=== PATIENT | male | born 1995 | race Two or more races ===

== ENCOUNTER 2018-08-20 10:34 | Inpatient (IN) | payer OTHER ==
--- NOTE | 2018-08-20 10:42 | EDM.PDOC ---
ED HPI GENERAL MEDICAL PROBLEM - General Chief Complaint: Skin Complaint Stated Complaint: INFECTION Time Seen by Provider: 08/20/18 10:34 Source of Information: Reports: Patient History Limitations: Reports: No Limitations - History of Present Illness INITIAL COMMENTS - FREE TEXT/NARRATIVE: HISTORY AND PHYSICAL: History of present illness: Patient is a 23-year-old male presents to the ED today via police manager as patient is currently in [facility] with concern of a infection next to his rectum. Patient states he has noticed the infection started yesterday, and today felt like he had increased in size. Patient states he feels like he has subjective fevers at [facility] but has not been able to check her temperature. Patient states he had a difficult time sleeping last night and has had a hard time sitting due to the infection. Patient states he's had infection similar to this in the past just on. His other body parts. Patient states he's not been able to take anything for the symptoms. Patient denies any other symptoms or concerns. Patient denies chills, chest pain, shortness of breath, or cough. Denies headache, neck stiff ness, change in vision, syncope, or near syncope. Denies nausea, vomiting, abdominal pain, diarrhea, constipation, or dysuria. Has not noted any blood in urine or stool. Patient has been eating and drinking appropriately. Review of systems: As per history of present illness and below otherwise all systems reviewed and negative. Past medical history: As per history of present illness and as reviewed below otherwise noncontributory. Surgical history: As per history of present illness and as reviewed below otherwise noncontributory. Social history: See social history for further information Family history: As per history of present illness and as reviewed below otherwise noncontributory. Physical exam: General: Patient is alert, oriented, and in no acute distress. Patient sitting comfortably on exam table. HEENT: Atraumatic, normocephalic, pupils equal and reactive bilaterally, negative for conjunctival pallor or scleral icterus, mucous membranes moist, TMs normal bilaterally, throat clear, neck supple, nontender, trachea midline. No drooling or trismus noted. No meningeal signs. No hot potato voice noted. Lungs: Clear to auscultation, breath sounds equal bilaterally, chest nontender. Heart: S1S2, regular rate and rhythm without overt murmur Abdomen: Soft, nondistended, nontender. Negative for masses or hepatosplenomegaly. Negative for costovertebral tenderness. Pelvis: Stable nontender. Genitourinary: Deferred. Rectal: Tone intact. There is a follicular oquendo at the 3 o'clock position of the rectum with surrounding induration and erythema.Unable to determine depth / tracking extent of infection. Skin: Intact, warm, dry. No lesions or rashes noted. Extremities: Atraumatic, negative for cords or calf pain. Neurovascular unremarkable. Neuro: Awake, alert, oriented. Cranial nerves II through XII unremarkable. Cerebellum unremarkable. Motor and sensory unremarkable throughout. Exam nonfocal. Notes: Dr. Crystal verbally involved in patient care. Dr. Dickerson consulted on patient and will admit to observation. Voices understanding and is agreeable to plan of care. Denies any further questions or concerns at this time. Diagnostics: CBC, CMP, UA, blood cultures, lactate, pelvic CT Therapeutics: NS, Rocephin Impression: Gluteal fold cellulitis / folliculitis Leukocytosis Plan: 1. Admit to observation to Dr. Dickerson. Definitive disposition and diagnosis as appropriate pending reevaluation and review of above. right buttocks Pain Score (Numeric/FACES): 7 - Related Data Allergies Allergy/AdvReac Type Severity Reaction Status Date / Time vancomycin Allergy Hives Verified 08/20/18 13:39 Home Meds: Home Meds . [No Known Home Meds] 08/20/18 [History] ED ROS GENERAL - Review of Systems Review Of Systems: ROS reveals no pertinent complaints other than HPI. ED EXAM, SKIN/RASH Exam: See Below (See dictation) Course - Vital Signs Last Recorded V/S: Last Vital Signs Temp 35.6 C 08/20/18 10:42 Pulse 85 08/20/18 10:42 Resp 18 08/20/18 10:42 BP 173/81 H 08/20/18 10:42 Pulse Ox 94 L 08/20/18 10:42 - Orders/Labs/Meds Orders: Active Orders 24 hr Category Date Time Status Patient Status [ADT] Stat ADT 08/20/18 13:40 Ordered CULTURE BLOOD [BC] Stat Lab 08/20/18 11:01 Ordered Sodium Chloride 0.9% [Normal Saline] 1,000 ml Med 08/20/18 13:04 Ordered IV STAT Vancomycin [Vancocin] 1 gm Med 08/20/18 13:04 Ordered Sodium Chloride 0.9% [Normal Saline] 250 ml IV ONETIME Blood Culture x2 Reflex Set [OM.PC] Stat Oth 08/20/18 11:00 Ordered Medication Orders Sodium Chloride (Normal Saline) 1,000 mls @ 999 mls/hr IV STAT ONE Stop: 08/20/18 14:04 Last Admin: 08/20/18 13:22 Dose: 999 mls/hr Vancomycin HCl 1 gm/ Sodium (Chloride) 250 mls @ 250 mls/hr IV ONETIME ONE Stop: 08/20/18 14:03 Last Admin: 08/20/18 13:22 Dose: 250 mls/hr Labs: Laboratory Tests 08/20/18 08/20/18 08/20/18 Range/Units 11:08 11:08 11:08 WBC 17.98 H (4.0-11.0) K/uL RBC 5.79 (4.50-5.90) M/uL Hgb 16.7 (13.0-17.0) g/dL Hct 50.7 H (38.0-50.0) % MCV 87.6 (80.0-98.0) fL MCH 28.8 (27.0-32.0) pg MCHC 32.9 (31.0-37.0) g/dL RDW Std Deviation 41.6 (28.0-62.0) fl RDW Coeff of [place] 13 (11.0-15.0) % Plt Count 207 (150-400) K/uL MPV 10.80 (7.40-12.00) fL Neut % (Auto) 66.8 (48.0-80.0) % Lymph % (Auto) 18.4 (16.0-40.0) % [place] % (Auto) 14.2 (0.0-15.0) % Eos % (Auto) 0.4 (0.0-7.0) % Baso % (Auto) 0.2 (0.0-1.5) % Neut # (Auto) 12.0 H (1.4-5.7) K/uL Lymph # (Auto) 3.3 H (0.6-2.4) K/uL [place] # (Auto) 2.6 H (0.0-0.8) K/uL Eos # (Auto) 0.1 (0.0-0.7) K/uL Baso # (Auto) 0.0 (0.0-0.1) K/uL Nucleated RBC % 0.0 /100WBC Nucleated RBCs # 0 K/uL Lactate 1.8 (0.20-2.00) mmol/L Sodium 140 (136-148) mmol/L Potassium 3.5 (3.5-5.1) mmol/L Chloride 101 (98-107) mmol/L Carbon Dioxide 26.6 (21.0-32.0) mmol/L BUN 6 L (7.0-18.0) mg/dL Creatinine 1.0 (0.8-1.3) mg/dL Est Cr Clr Drug Dosing 113.91 mL/min Estimated GFR (MDRD) > 60.0 ml/min Glucose 110 H (74-106) mg/dL Calcium 9.1 (8.5-10.1) mg/dL Total Bilirubin 1.0 (0.2-1.0) mg/dL AST 11 L (15-37) IU/L ALT 25 (14-63) IU/L Alkaline Phosphatase 46 (46-116) U/L Total Protein 8.2 (6.4-8.2) g/dL Albumin 3.9 (3.4-5.0) g/dL Globulin 4.3 H (2.6-4.0) g/dL Albumin/Globulin Ratio 0.9 (0.9-1.6) Urine Color Urine Appearance Urine pH (5.0-8.0) Ur Specific [place] (1.001-1.035) Urine Protein (NEGATIVE) mg/dL Urine Glucose (UA) (NEGATIVE) mg/dL Urine Ketones (NEGATIVE) mg/dL Urine Occult Blood (NEGATIVE) Urine Nitrite (NEGATIVE) Urine Bilirubin (NEGATIVE) Urine Urobilinogen (<2.0) EU/dL Ur Leukocyte Esterase (NEGATIVE) 08/20/18 Range/Units 11:40 WBC (4.0-11.0) K/uL RBC (4.50-5.90) M/uL Hgb (13.0-17.0) g/dL Hct (38.0-50.0) % MCV (80.0-98.0) fL MCH (27.0-32.0) pg MCHC (31.0-37.0) g/dL RDW Std Deviation (28.0-62.0) fl RDW Coeff of [place] (11.0-15.0) % Plt Count (150-400) K/uL MPV (7.40-12.00) fL Neut % (Auto) (48.0-80.0) % Lymph % (Auto) (16.0-40.0) % [place] % (Auto) (0.0-15.0) % Eos % (Auto) (0.0-7.0) % Baso % (Auto) (0.0-1.5) % Neut # (Auto) (1.4-5.7) K/uL Lymph # (Auto) (0.6-2.4) K/uL [place] # (Auto) (0.0-0.8) K/uL Eos # (Auto) (0.0-0.7) K/uL Baso # (Auto) (0.0-0.1) K/uL Nucleated RBC % /100WBC Nucleated RBCs # K/uL Lactate (0.20-2.00) mmol/L Sodium (136-148) mmol/L Potassium (3.5-5.1) mmol/L Chloride (98-107) mmol/L Carbon Dioxide (21.0-32.0) mmol/L BUN (7.0-18.0) mg/dL Creatinine (0.8-1.3) mg/dL Est Cr Clr Drug Dosing mL/min Estimated GFR (MDRD) ml/min Glucose (74-106) mg/dL Calcium (8.5-10.1) mg/dL Total Bilirubin (0.2-1.0) mg/dL AST (15-37) IU/L ALT (14-63) IU/L Alkaline Phosphatase (46-116) U/L Total Protein (6.4-8.2) g/dL Albumin (3.4-5.0) g/dL Globulin (2.6-4.0) g/dL Albumin/Globulin Ratio (0.9-1.6) Urine Color YELLOW Urine Appearance CLEAR Urine pH 6.0 (5.0-8.0) Ur Specific [place] 1.020 (1.001-1.035) Urine Protein NEGATIVE (NEGATIVE) mg/dL Urine Glucose (UA) NEGATIVE (NEGATIVE) mg/dL Urine Ketones NEGATIVE (NEGATIVE) mg/dL Urine Occult Blood NEGATIVE (NEGATIVE) Urine Nitrite NEGATIVE (NEGATIVE) Urine Bilirubin NEGATIVE (NEGATIVE) Urine Urobilinogen 0.2 (<2.0) EU/dL Ur Leukocyte Esterase NEGATIVE (NEGATIVE) Meds: Medications Generic Name Dose Route Start Last Admin Trade Name Freq PRN Reason Stop Dose Admin Sodium Chloride 1,000 mls @ 999 mls/hr 08/20/18 13:04 08/20/18 13:22 Normal Saline IV 08/20/18 14:04 999 mls/hr STAT ONE Administration Vancomycin HCl 1 gm/ Sodium 250 mls @ 250 mls/hr 08/20/18 13:04 08/20/18 13: 22 Chloride IV 08/20/18 14:03 250 mls/hr ONETIME ONE Administration Discontinued Medications Generic Name Dose Route Start Last Admin Trade Name Freq PRN Reason Stop Dose Admin Ceftriaxone Sodium 1 gm 08/20/18 13:01 Rocephin IM 08/20/18 13:02 ONETIME ONE Diphenhydramine HCl 25 mg 08/20/18 13:25 08/20/18 13:31 Benadryl IVPUSH 08/20/18 13:26 25 mg ONETIME ONE Administration Sodium Chloride Confirm 08/20/18 13:13 08/20/18 13:15 Normal Saline Administered 08/20/18 13:14 Not Given Dose 250 mls @ as directed .ROUTE .STK-MED ONE Ceftriaxone Sodium/Dextrose 1 50 mls @ 100 mls/hr 08/20/18 13:25 08/20/18 13: 35 gm/ Premix IV 08/20/18 13:54 100 mls/hr ONETIME ONE Administration Iopamidol 100 ml 08/20/18 12:27 08/20/18 12:28 Isovue Multipack-370 (76%) IVPUSH 08/20/18 12:28 100 ml ONETIME STA Administration Vancomycin HCl Confirm 08/20/18 13:12 08/20/18 13:15 Vancomycin Administered 08/20/18 13:13 Not Given Dose 1 gm .ROUTE .STK-MED ONE Departure - Departure Time of Disposition: 13:05 Disposition: Refer to Observation Clinical Impression: Cellulitis of gluteal region - Discharge Information - My Orders Last 24 Hours: My Active Orders 08/20/18 11:00 Blood Culture x2 Reflex Set [OM.PC] Stat 08/20/18 11:01 CULTURE BLOOD [BC] Stat 08/20/18 13:04 Sodium Chloride 0.9% [Normal Saline] 1,000 ml IV STAT Vancomycin [Vancocin] 1 gm Sodium Chloride 0.9% [Normal Saline] 250 ml IV ONETIME 08/20/18 13:40 Patient Status [ADT] Stat - Assessment/Plan Last 24 Hours: My Active Orders 08/20/18 11:00 Blood Culture x2 Reflex Set [OM.PC] Stat 08/20/18 11:01 CULTURE BLOOD [BC] Stat 08/20/18 13:04 Sodium Chloride 0.9% [Normal Saline] 1,000 ml IV STAT Vancomycin [Vancocin] 1 gm Sodium Chloride 0.9% [Normal Saline] 250 ml IV ONETIME 08/20/18 13:40 Patient Status [ADT] Stat
[2018-08-20 11:50] LABS: CHLORIDE,CL 101 mmol/L (98-107); SODIUM,NA 140 mmol/L (136-148)
[2018-08-20] MEDS ORDERED: Iopamidol 755 MG/ML 500 ML Multipack Bottle IVPUSH STA (12:27)
--- NOTE | 2018-08-20 12:58 | CT ---
INDICATION : Right cellulitis and inflammation. Staph infection. TECHNIQUE : CT Scan of the pelvis soft tissue. IV contrast 100 cc nonionic. COMPARISON : No comparison IMPRESSION: 1. There is a right gluteal cellulitis however no obvious drainable fluid collection or abscess is seen. 2. The distal rectum appears unremarkable. The anal sphincter complex is not well assessed, if there is need for further evaluation consider pelvic rectal MRI protocol with gadolinium. FINDINGS: Soft tissues: A cellulitis with infiltration and edema in the medial right gluteal fold. No drainable fluid collection. Rectum and GI tract: No obvious rectal thickening. The colon has a moderate to large amount of retained stool. The appendix is normal. Urinary bladder and prostate: Unremarkable. Lymph nodes: No pathologic lymph node enlargement. Osseous structures: Unremarkable. Please note that all CT scans at this facility use dose modulation, iterative reconstruction, and/or weight-based dosing when appropriate to reduce radiation dose to as low as reasonably achievable. Dictated by Janes Sterling MD @ Aug 20 2018 12:53PM Signed by Dr. Janes Sterling @ Aug 20 2018 12:58PM
[2018-08-20] MEDS ORDERED: cefTRIAXone 1 GM Vial IM ONE (13:01)
[2018-08-20] MEDS ORDERED: Sodium Chloride 0.9% 1,000 ML IV ONE (13:04)
[2018-08-20] MEDS ORDERED: Vancomycin 1 GM SDV ONE (13:12)
[2018-08-20] MEDS ORDERED: Sodium Chloride 0.9% 250 ML ONE (13:13)
[2018-08-20] MEDS ORDERED: diphenhydrAMINE 50 MG/ML SDV IVPUSH ONE (13:25)
[2018-08-20] MEDS ORDERED: cefTRIAXone 1 GM in Premix Bag 1 BAG IV ONE (13:25)
[2018-08-20] MEDS ORDERED: Docusate Sodium 100 MG Cap PO PRN (14:09)
[2018-08-20] MEDS ORDERED: Ondansetron 4 MG Tab.DIS PO PRN (14:09)
--- NOTE | 2018-08-20 14:12 | PCM.HP ---
H&P History of Present Illness - General Date of Service: 08/20/18 Admit Problem/Dx: Admission Diagnosis/Problem Admission Diagnosis/Problem Cellulitis Source of Information: Patient History Limitations: Reports: No Limitations - History of Present Illness Initial Comments - Free Text/Narative: The patient is a 23-year-old gentleman who is in police custody had presented to the emergency department out of concern for pain and infection in his right buttocks. The patient reports that he had pain and swelling in this area which has gotten significantly worse over the past day. He has a history of pimple- like rash his buttocks as well. The patient says that he is been having a hard time sleeping and sitting due to the pain. The patient has had previous history of cellulitis. The patient has no other pain. He has no other specific aggravating or relieving factors. The pain is not radiating. Onset of Symptoms: Reports: Gradual Duration of Symptoms: Reports: Day(s): Location: Reports: Lower Extremity, Right Quality: Reports: Stabbing, Throbbing Severity: Moderate Improves with: Reports: Rest Worsens with: Reports: Movement Associated Symptoms: Reports: No Other Symptoms right buttocks Pain Score (Numeric/FACES): 7 - Related Data Allergies/Adverse Reactions: Allergies Allergy/AdvReac Type Severity Reaction Status Date / Time vancomycin Allergy Hives Verified 08/20/18 13:39 Home Medications: Home Meds . [No Known Home Meds] 08/20/18 [History] Past Medical History - Past Health History Medical/Surgical History: Denies Medical/Surgical History HEENT History: Reports: None Cardiovascular History: Reports: None Respiratory History: Reports: None Gastrointestinal History: Reports: None Genitourinary History: Reports: None Musculoskeletal History: Reports: None Neurological History: Reports: None Psychiatric History: Reports: None Endocrine/Metabolic History: Reports: None Hematologic History: Reports: None Immunologic History: Reports: None Oncologic (Cancer) History: Reports: None Dermatologic History: Reports: None - Infectious Disease History Infectious Disease History: Reports: MRSA Social & Family History - Family History Family Medical History: Noncontributory - Tobacco Use Smoking Status *Q: Never Smoker - Alcohol Use Alcohol Use History: No - Recreational Drug Use Recreational Drug Use: Yes Drug Use in Last 12 Months: Yes Recreational Drug Type: Reports: Marijuana/Hashish, Methamphetamine - Living Situation & Occupation Living situation: Reports: Other (Legal custody) H&P Review of Systems - Review of Systems: Review Of Systems: See Below General: Reports: No Symptoms HEENT: Reports: No Symptoms Pulmonary: Reports: No Symptoms Cardiovascular: Reports: No Symptoms Gastrointestinal: Reports: No Symptoms Genitourinary: Reports: No Symptoms Musculoskeletal: Reports: No Symptoms Skin: Reports: Rash, Other (Area of Cellulitis right gluteal cleft with folliculitis, area of erythema) Psychiatric: Reports: No Symptoms Neurological: Reports: No Symptoms Hematologic/Lymphatic: Reports: No Symptoms Immunologic: Reports: No Symptoms Exam - Exam Exam: See Below - Vital Signs Vital Signs: Last Vital Signs Temp 35.6 C 08/20/18 10:42 Pulse 79 08/20/18 14:05 Resp 16 08/20/18 14:05 BP 132/80 08/20/18 14:05 Pulse Ox 97 08/20/18 14:05 Weight: 113.398 kg - Exam Quality Assessment: No: Supplemental Oxygen General: Alert, Oriented, Cooperative, Mild Distress HEENT: Conjunctiva Clear, EACs Clear, EOMI, Mucosa Moist & [place], Nares Patent, PERRLA Neck: Supple, Trachea Midline Lungs: Clear to Auscultation, Normal Respiratory Effort Cardiovascular: Regular Rate, Regular Rhythm GI/Abdominal Exam: Normal Bowel Sounds, Soft, No Distention Back Exam: Normal Inspection, Full Range of Motion Extremities: Normal Inspection, No Pedal Edema Skin: Warm, Dry, Intact, Rash, Other (Area of cellulitis right gluteal cleft) Neurological: Cranial Nerves Intact Neuro Extensive - Mental Status: Alert, Oriented x3 Neuro Extensive - Motor, Sensory, Reflexes: CN II-XII Intact Psychiatric: Alert, Normal Affect, Normal Mood - Patient Data Lab Results Last 24 hrs: Laboratory Results - last 24 hr 08/20/18 08/20/18 08/20/18 Range/Units 11:08 11:08 11:08 WBC 17.98 H (4.0-11.0) K/uL RBC 5.79 (4.50-5.90) M/uL Hgb 16.7 (13.0-17.0) g/dL Hct 50.7 H (38.0-50.0) % MCV 87.6 (80.0-98.0) fL MCH 28.8 (27.0-32.0) pg MCHC 32.9 (31.0-37.0) g/dL RDW Std Deviation 41.6 (28.0-62.0) fl RDW Coeff of [place] 13 (11.0-15.0) % Plt Count 207 (150-400) K/uL MPV 10.80 (7.40-12.00) fL Neut % (Auto) 66.8 (48.0-80.0) % Lymph % (Auto) 18.4 (16.0-40.0) % [place] % (Auto) 14.2 (0.0-15.0) % Eos % (Auto) 0.4 (0.0-7.0) % Baso % (Auto) 0.2 (0.0-1.5) % Neut # (Auto) 12.0 H (1.4-5.7) K/uL Lymph # (Auto) 3.3 H (0.6-2.4) K/uL [place] # (Auto) 2.6 H (0.0-0.8) K/uL Eos # (Auto) 0.1 (0.0-0.7) K/uL Baso # (Auto) 0.0 (0.0-0.1) K/uL Nucleated RBC % 0.0 /100WBC Nucleated RBCs # 0 K/uL Lactate 1.8 (0.20-2.00) mmol/L Sodium 140 (136-148) mmol/L Potassium 3.5 (3.5-5.1) mmol/L Chloride 101 (98-107) mmol/L Carbon Dioxide 26.6 (21.0-32.0) mmol/L BUN 6 L (7.0-18.0) mg/dL Creatinine 1.0 (0.8-1.3) mg/dL Est Cr Clr Drug Dosing 113.91 mL/min Estimated GFR (MDRD) > 60.0 ml/min Glucose 110 H (74-106) mg/dL Calcium 9.1 (8.5-10.1) mg/dL Total Bilirubin 1.0 (0.2-1.0) mg/dL AST 11 L (15-37) IU/L ALT 25 (14-63) IU/L Alkaline Phosphatase 46 (46-116) U/L Total Protein 8.2 (6.4-8.2) g/dL Albumin 3.9 (3.4-5.0) g/dL Globulin 4.3 H (2.6-4.0) g/dL Albumin/Globulin Ratio 0.9 (0.9-1.6) Urine Color Urine Appearance Urine pH (5.0-8.0) Ur Specific [place] (1.001-1.035) Urine Protein (NEGATIVE) mg/dL Urine Glucose (UA) (NEGATIVE) mg/dL Urine Ketones (NEGATIVE) mg/dL Urine Occult Blood (NEGATIVE) Urine Nitrite (NEGATIVE) Urine Bilirubin (NEGATIVE) Urine Urobilinogen (<2.0) EU/dL Ur Leukocyte Esterase (NEGATIVE) 08/20/18 Range/Units 11:40 WBC (4.0-11.0) K/uL RBC (4.50-5.90) M/uL Hgb (13.0-17.0) g/dL Hct (38.0-50.0) % MCV (80.0-98.0) fL MCH (27.0-32.0) pg MCHC (31.0-37.0) g/dL RDW Std Deviation (28.0-62.0) fl RDW Coeff of [place] (11.0-15.0) % Plt Count (150-400) K/uL MPV (7.40-12.00) fL Neut % (Auto) (48.0-80.0) % Lymph % (Auto) (16.0-40.0) % [place] % (Auto) (0.0-15.0) % Eos % (Auto) (0.0-7.0) % Baso % (Auto) (0.0-1.5) % Neut # (Auto) (1.4-5.7) K/uL Lymph # (Auto) (0.6-2.4) K/uL [place] # (Auto) (0.0-0.8) K/uL Eos # (Auto) (0.0-0.7) K/uL Baso # (Auto) (0.0-0.1) K/uL Nucleated RBC % /100WBC Nucleated RBCs # K/uL Lactate (0.20-2.00) mmol/L Sodium (136-148) mmol/L Potassium (3.5-5.1) mmol/L Chloride (98-107) mmol/L Carbon Dioxide (21.0-32.0) mmol/L BUN (7.0-18.0) mg/dL Creatinine (0.8-1.3) mg/dL Est Cr Clr Drug Dosing mL/min Estimated GFR (MDRD) ml/min Glucose (74-106) mg/dL Calcium (8.5-10.1) mg/dL Total Bilirubin (0.2-1.0) mg/dL AST (15-37) IU/L ALT (14-63) IU/L Alkaline Phosphatase (46-116) U/L Total Protein (6.4-8.2) g/dL Albumin (3.4-5.0) g/dL Globulin (2.6-4.0) g/dL Albumin/Globulin Ratio (0.9-1.6) Urine Color YELLOW Urine Appearance CLEAR Urine pH 6.0 (5.0-8.0) Ur Specific [place] 1.020 (1.001-1.035) Urine Protein NEGATIVE (NEGATIVE) mg/dL Urine Glucose (UA) NEGATIVE (NEGATIVE) mg/dL Urine Ketones NEGATIVE (NEGATIVE) mg/dL Urine Occult Blood NEGATIVE (NEGATIVE) Urine Nitrite NEGATIVE (NEGATIVE) Urine Bilirubin NEGATIVE (NEGATIVE) Urine Urobilinogen 0.2 (<2.0) EU/dL Ur Leukocyte Esterase NEGATIVE (NEGATIVE) Result Diagrams: 08/20/18 11:08 08/20/18 11:08 - Problem List (1) Cellulitis of gluteal region SNOMED Code(s): 93382263 ICD Code: L03.317 - CELLULITIS OF BUTTOCK Status: Acute Priority: High Current Visit: Yes Problem List Initiated/Reviewed/Updated: Yes Orders Last 24hrs: Active Orders 24 hr Category Date Time Status Patient Status [ADT] Stat ADT 08/20/18 13:40 Active Oxygen Therapy [RC] PRN Care 08/20/18 14:08 Ordered Oxygen Therapy [RC] PRN Care 08/20/18 14:09 Ordered Up ad Ramila [RC] ASDIRECTED Care 08/20/18 14:08 Ordered VTE/DVT Education [RC] PER UNIT ROUTINE Care 08/20/18 14:08 Ordered VTE/DVT Education [RC] PER UNIT ROUTINE Care 08/20/18 14:09 Ordered Vital Signs [RC] Q4H Care 08/20/18 14:08 Ordered Vital Signs [RC] Q4H Care 08/20/18 14:09 Ordered Regular Diet [DIET] Diet 08/20/18 Dinner Ordered CBC WITH AUTO DIFF [HEME] AM Lab 08/21/18 05:11 Ordered COMPREHENSIVE METABOLIC PN,CMP [CHEM] AM Lab 08/21/18 05:11 Ordered CULTURE BLOOD [BC] Stat Lab 08/20/18 00:50 Received Acetaminophen [Tylenol] Med 08/20/18 14:09 Ordered 650 mg PO Q4H PRN Docusate Sodium [Colace] Med 08/20/18 14:09 Ordered 100 mg PO BID PRN Enoxaparin [Lovenox] Med 08/20/18 14:15 Ordered 30 mg SUBCUT Q24H Ondansetron [Zofran ODT] Med 08/20/18 14:09 Ordered 4 mg PO Q6H PRN Sodium Chloride 0.9% [Normal Saline] 1,000 ml Med 08/20/18 14:15 Ordered IV ASDIRECTED oxyCODONE Med 08/20/18 14:09 Ordered 5 mg PO Q4H PRN Blood Culture x2 Reflex Set [OM.PC] Stat Oth 08/20/18 11:00 Ordered Resuscitation Status Routine Resus Stat 08/20/18 14:08 Ordered Medication Orders Acetaminophen (Tylenol) 650 mg PO Q4H PRN PRN Reason: Pain (Mild 1-3)/fever Docusate Sodium (Colace) 100 mg PO BID PRN PRN Reason: Constipation Enoxaparin Sodium (Lovenox) 30 mg SUBCUT Q24H ISHAN Sodium Chloride (Normal Saline) 1,000 mls @ 100 mls/hr IV ASDIRECTED ISHAN Ondansetron HCl (Zofran Odt) 4 mg PO Q6H PRN PRN Reason: nausea, able to take PO Oxycodone HCl (Oxycodone) 5 mg PO Q4H PRN PRN Reason: Pain (moderate 4-6) Assessment/Plan Comment:: The patient is a 23-year-old gentleman who presented to the emergency department well in police custody with regards to cellulitis of his right gluteal area. The patient does have an area of folliculitis as well. While in the emergency department the patient apparently had a reaction to the vancomycin and the result this was discontinued.. The patient will be started on linezolid in order for tissue penetration and possible MRSA. The patient will also be afforded DVT prophylaxis with the use of Lovenox 30 mg subcutaneous daily. The patient will be kept on regular diet as tolerated. He's been encouraged to ambulate. Repeat laboratory testings a been ordered. The patient should be appropriate for discharge in 1-2 days.
[2018-08-20] MEDS: Enoxaparin 30 MG/0.3 ML Syringe SUBCUT SCH (15:41)
[2018-08-20] MEDS: Linezolid 600 MG in Premix Bag 1 BAG IV SCH (15:43)
[2018-08-20] MEDS: Sodium Chloride 0.9% 1,000 ML IV SCH (15:44)
[2018-08-20] MEDS: Acetaminophen 325 MG Tab PO PRN (17:39)
[2018-08-21] MEDS: Acetaminophen 325 MG Tab PO PRN ×4 (00:07→23:21)
[2018-08-21] MEDS: Linezolid 600 MG in Premix Bag 1 BAG IV SCH ×2 (02:27→15:06)
[2018-08-21] MEDS: Sodium Chloride 0.9% 1,000 ML IV SCH ×2 (04:23→16:14)
[2018-08-21 06:24] LABS: CHLORIDE,CL 101 mmol/L (98-107); SODIUM,NA 138 mmol/L (136-148)
[2018-08-21] MEDS: oxyCODONE 5 MG Tab PO PRN ×3 (07:34→23:13)
--- NOTE | 2018-08-21 08:16 | PCM.PN ---
<Juan Parsons - Last Filed: 08/21/18 08:11> - General Info Date of Service: 08/21/18 Subjective Update: no acute events overnight. borderline fever overnight of 100.3. States he feels better but still having some pain on his right gluteal fold. - Patient Data Vitals - Most Recent: Last Vital Signs Temp 100.3 C H 08/21/18 07:32 Pulse 93 08/21/18 07:11 Resp 18 08/21/18 07:11 BP 139/68 08/21/18 07:11 Pulse Ox 96 08/21/18 07:11 Weight - Most Recent: 113.398 kg I&O - Last 24 Hours: Intake & Output 08/20/18 08/21/18 08/21/18 22:59 06:59 14:59 Intake Total 1040 3007 Output Total 400 1250 Balance 640 1757 Lab Results Last 24 Hours: Laboratory Results - last 24 hr 08/20/18 08/20/18 08/20/18 Range/Units 11:08 11:08 11:08 WBC 17.98 H (4.0-11.0) K/uL RBC 5.79 (4.50-5.90) M/uL Hgb 16.7 (13.0-17.0) g/dL Hct 50.7 H (38.0-50.0) % MCV 87.6 (80.0-98.0) fL MCH 28.8 (27.0-32.0) pg MCHC 32.9 (31.0-37.0) g/dL RDW Std Deviation 41.6 (28.0-62.0) fl RDW Coeff of [place] 13 (11.0-15.0) % Plt Count 207 (150-400) K/uL MPV 10.80 (7.40-12.00) fL Neut % (Auto) 66.8 (48.0-80.0) % Lymph % (Auto) 18.4 (16.0-40.0) % [place] % (Auto) 14.2 (0.0-15.0) % Eos % (Auto) 0.4 (0.0-7.0) % Baso % (Auto) 0.2 (0.0-1.5) % Neut # (Auto) 12.0 H (1.4-5.7) K/uL Lymph # (Auto) 3.3 H (0.6-2.4) K/uL [place] # (Auto) 2.6 H (0.0-0.8) K/uL Eos # (Auto) 0.1 (0.0-0.7) K/uL Baso # (Auto) 0.0 (0.0-0.1) K/uL Add Manual Diff Neutrophils % (Manual) (48.0-80.0) % Band Neutrophils % % Lymphocytes % (Manual) (16.0-40.0) % Monocytes % (Manual) (0.0-15.0) % Eosinophils % (Manual) (0.0-7.0) % Metamyelocytes % % Nucleated RBC % 0.0 /100WBC Absolute Seg Neuts (1.4-5.7) Band Neutrophils # Lymphocytes # (Manual) (0.6-2.4) Monocytes # (Manual) (0.0-0.8) Eosinophils # (Manual) (0.0-0.7) Absolute Metamyelocyte Nucleated RBCs # 0 K/uL Lactate 1.8 (0.20-2.00) mmol/L Sodium 140 (136-148) mmol/L Potassium 3.5 (3.5-5.1) mmol/L Chloride 101 (98-107) mmol/L Carbon Dioxide 26.6 (21.0-32.0) mmol/L BUN 6 L (7.0-18.0) mg/dL Creatinine 1.0 (0.8-1.3) mg/dL Est Cr Clr Drug Dosing 113.91 mL/min Estimated GFR (MDRD) > 60.0 ml/min Glucose 110 H (74-106) mg/dL Calcium 9.1 (8.5-10.1) mg/dL Total Bilirubin 1.0 (0.2-1.0) mg/dL AST 11 L (15-37) IU/L ALT 25 (14-63) IU/L Alkaline Phosphatase 46 (46-116) U/L Total Protein 8.2 (6.4-8.2) g/dL Albumin 3.9 (3.4-5.0) g/dL Globulin 4.3 H (2.6-4.0) g/dL Albumin/Globulin Ratio 0.9 (0.9-1.6) Urine Color Urine Appearance Urine pH (5.0-8.0) Ur Specific [place] (1.001-1.035) Urine Protein (NEGATIVE) mg/dL Urine Glucose (UA) (NEGATIVE) mg/dL Urine Ketones (NEGATIVE) mg/dL Urine Occult Blood (NEGATIVE) Urine Nitrite (NEGATIVE) Urine Bilirubin (NEGATIVE) Urine Urobilinogen (<2.0) EU/dL Ur Leukocyte Esterase (NEGATIVE) 08/20/18 08/21/18 08/21/18 Range/Units 11:40 05:44 05:44 WBC 20.22 H (4.0-11.0) K/uL RBC 5.30 (4.50-5.90) M/uL Hgb 15.5 (13.0-17.0) g/dL Hct 46.9 (38.0-50.0) % MCV 88.5 (80.0-98.0) fL MCH 29.2 (27.0-32.0) pg MCHC 33.0 (31.0-37.0) g/dL RDW Std Deviation 42.4 (28.0-62.0) fl RDW Coeff of [place] 13 (11.0-15.0) % Plt Count 190 (150-400) K/uL MPV 10.40 (7.40-12.00) fL Neut % (Auto) (48.0-80.0) % Lymph % (Auto) (16.0-40.0) % [place] % (Auto) (0.0-15.0) % Eos % (Auto) (0.0-7.0) % Baso % (Auto) (0.0-1.5) % Neut # (Auto) (1.4-5.7) K/uL Lymph # (Auto) (0.6-2.4) K/uL [place] # (Auto) (0.0-0.8) K/uL Eos # (Auto) (0.0-0.7) K/uL Baso # (Auto) (0.0-0.1) K/uL Add Manual Diff YES Neutrophils % (Manual) 70 (48.0-80.0) % Band Neutrophils % 10 % Lymphocytes % (Manual) 15 L (16.0-40.0) % Monocytes % (Manual) 2 (0.0-15.0) % Eosinophils % (Manual) 1 (0.0-7.0) % Metamyelocytes % 2 % Nucleated RBC % 0.0 /100WBC Absolute Seg Neuts 14.2 H (1.4-5.7) Band Neutrophils # 2.0 Lymphocytes # (Manual) 3.0 H (0.6-2.4) Monocytes # (Manual) 0.4 (0.0-0.8) Eosinophils # (Manual) 0.2 (0.0-0.7) Absolute Metamyelocyte 0.4 Nucleated RBCs # 0 K/uL Lactate (0.20-2.00) mmol/L Sodium 138 (136-148) mmol/L Potassium 4.0 (3.5-5.1) mmol/L Chloride 101 (98-107) mmol/L Carbon Dioxide 28.7 (21.0-32.0) mmol/L BUN 6 L (7.0-18.0) mg/dL Creatinine 1.0 (0.8-1.3) mg/dL Est Cr Clr Drug Dosing 113.91 mL/min Estimated GFR (MDRD) > 60.0 ml/min Glucose 104 (74-106) mg/dL Calcium 8.6 (8.5-10.1) mg/dL Total Bilirubin 0.9 (0.2-1.0) mg/dL AST 14 L (15-37) IU/L ALT 27 (14-63) IU/L Alkaline Phosphatase 47 (46-116) U/L Total Protein 7.6 (6.4-8.2) g/dL Albumin 3.4 (3.4-5.0) g/dL Globulin 4.2 H (2.6-4.0) g/dL Albumin/Globulin Ratio 0.8 L (0.9-1.6) Urine Color YELLOW Urine Appearance CLEAR Urine pH 6.0 (5.0-8.0) Ur Specific [place] 1.020 (1.001-1.035) Urine Protein NEGATIVE (NEGATIVE) mg/dL Urine Glucose (UA) NEGATIVE (NEGATIVE) mg/dL Urine Ketones NEGATIVE (NEGATIVE) mg/dL Urine Occult Blood NEGATIVE (NEGATIVE) Urine Nitrite NEGATIVE (NEGATIVE) Urine Bilirubin NEGATIVE (NEGATIVE) Urine Urobilinogen 0.2 (<2.0) EU/dL Ur Leukocyte Esterase NEGATIVE (NEGATIVE) Med Orders - Current: Current Medications Acetaminophen (Tylenol) 650 mg PO Q4H PRN PRN Reason: Pain (Mild 1-3)/fever Last Admin: 08/21/18 07:32 Dose: 650 mg Docusate Sodium (Colace) 100 mg PO BID PRN PRN Reason: Constipation Enoxaparin Sodium (Lovenox) 30 mg SUBCUT Q24H [facility] Last Admin: 08/20/18 15:41 Dose: 30 mg Sodium Chloride (Normal Saline) 1,000 mls @ 100 mls/hr IV ASDIRECTED [facility] Last Admin: 08/21/18 04:23 Dose: 100 mls/hr Linezolid 600 mg/ Premix 300 mls @ 300 mls/hr IV Q12H [facility] Last Admin: 08/21/18 02:27 Dose: 300 mls/hr Ondansetron HCl (Zofran Odt) 4 mg PO Q6H PRN PRN Reason: nausea, able to take PO Oxycodone HCl (Oxycodone) 5 mg PO Q4H PRN PRN Reason: Pain (moderate 4-6) Last Admin: 08/21/18 07:34 Dose: 5 mg Discontinued Medications Ceftriaxone Sodium (Rocephin) 1 gm IM ONETIME ONE Stop: 08/20/18 13:02 Last Admin: 08/20/18 14:07 Dose: Not Given Diphenhydramine HCl (Benadryl) 25 mg IVPUSH ONETIME ONE Stop: 08/20/18 13:26 Last Admin: 08/20/18 13:31 Dose: 25 mg Sodium Chloride (Normal Saline) 1,000 mls @ 999 mls/hr IV STAT ONE Stop: 08/20/18 14:04 Last Admin: 08/20/18 13:22 Dose: 999 mls/hr Vancomycin HCl 1 gm/ Sodium (Chloride) 250 mls @ 250 mls/hr IV ONETIME ONE Stop: 08/20/18 14:03 Last Admin: 08/20/18 13:22 Dose: 250 mls/hr Sodium Chloride (Normal Saline) Confirm Administered Dose 250 mls @ as directed .ROUTE .STK-MED ONE Stop: 08/20/18 13:14 Last Admin: 08/20/18 13:15 Dose: Not Given Ceftriaxone Sodium/Dextrose 1 (gm/ Premix) 50 mls @ 100 mls/hr IV ONETIME ONE Stop: 08/20/18 13:54 Last Admin: 08/20/18 13:35 Dose: 100 mls/hr Iopamidol (Isovue Multipack-370 (76%)) 100 ml IVPUSH ONETIME STA Stop: 08/20/18 12:28 Last Admin: 08/20/18 12:28 Dose: 100 ml Vancomycin HCl (Vancomycin) Confirm Administered Dose 1 gm .ROUTE .STK-MED ONE Stop: 08/20/18 13:13 Last Admin: 08/20/18 13:15 Dose: Not Given - Exam General: Alert, Oriented, Cooperative, No Acute Distress Lungs: Clear to Auscultation, Normal Respiratory Effort Cardiovascular: Regular Rate, Regular Rhythm GI/Abdominal Exam: Normal Bowel Sounds, Soft, Non-Tender, No Distention (Male) Exam: Other (tender right area under right gluteal fold. No fluctuance. No drainage.) Skin: Warm - Problem List Review Problem List Initiated/Reviewed/Updated: Yes - Plan Plan:: A: 1. Right gluteal fold cellulitis 2. Leukocytosis P: 1. Right gluteal fold cellulitis- continue with Linezolid since he had reaction to vancomycin. Continue to monitor overnight. Dispo: likely DC tomorrow <Farhad Dickerson - Last Filed: 08/21/18 10:07> - General Info Admission Dx/Problem (Free Text): I have seen and examined to patient independently of medical scientist, Juan Mckeon MD. I have discussed the case for care of this patient with him. I have reviewed and approve of the plan of care as outlined by medical scientist. Please see orders. - Patient Data Vitals - Most Recent: Last Vital Signs Temp 100.3 C H 08/21/18 07:32 Pulse 93 08/21/18 07:11 Resp 18 08/21/18 07:11 BP 139/68 08/21/18 07:11 Pulse Ox 96 08/21/18 07:11 I&O - Last 24 Hours: Intake & Output 08/20/18 08/21/18 08/21/18 22:59 06:59 14:59 Intake Total 1040 3007 Output Total 400 1250 Balance 640 1757 Lab Results Last 24 Hours: Laboratory Results - last 24 hr 08/20/18 08/20/18 08/20/18 Range/Units 11:08 11:08 11:08 WBC 17.98 H (4.0-11.0) K/uL RBC 5.79 (4.50-5.90) M/uL Hgb 16.7 (13.0-17.0) g/dL Hct 50.7 H (38.0-50.0) % MCV 87.6 (80.0-98.0) fL MCH 28.8 (27.0-32.0) pg MCHC 32.9 (31.0-37.0) g/dL RDW Std Deviation 41.6 (28.0-62.0) fl RDW Coeff of [place] 13 (11.0-15.0) % Plt Count 207 (150-400) K/uL MPV 10.80 (7.40-12.00) fL Neut % (Auto) 66.8 (48.0-80.0) % Lymph % (Auto) 18.4 (16.0-40.0) % [place] % (Auto) 14.2 (0.0-15.0) % Eos % (Auto) 0.4 (0.0-7.0) % Baso % (Auto) 0.2 (0.0-1.5) % Neut # (Auto) 12.0 H (1.4-5.7) K/uL Lymph # (Auto) 3.3 H (0.6-2.4) K/uL [place] # (Auto) 2.6 H (0.0-0.8) K/uL Eos # (Auto) 0.1 (0.0-0.7) K/uL Baso # (Auto) 0.0 (0.0-0.1) K/uL Add Manual Diff Neutrophils % (Manual) (48.0-80.0) % Band Neutrophils % % Lymphocytes % (Manual) (16.0-40.0) % Monocytes % (Manual) (0.0-15.0) % Eosinophils % (Manual) (0.0-7.0) % Metamyelocytes % % Nucleated RBC % 0.0 /100WBC Absolute Seg Neuts (1.4-5.7) Band Neutrophils # Lymphocytes # (Manual) (0.6-2.4) Monocytes # (Manual) (0.0-0.8) Eosinophils # (Manual) (0.0-0.7) Absolute Metamyelocyte Nucleated RBCs # 0 K/uL Lactate 1.8 (0.20-2.00) mmol/L Sodium 140 (136-148) mmol/L Potassium 3.5 (3.5-5.1) mmol/L Chloride 101 (98-107) mmol/L Carbon Dioxide 26.6 (21.0-32.0) mmol/L BUN 6 L (7.0-18.0) mg/dL Creatinine 1.0 (0.8-1.3) mg/dL Est Cr Clr Drug Dosing 113.91 mL/min Estimated GFR (MDRD) > 60.0 ml/min Glucose 110 H (74-106) mg/dL Calcium 9.1 (8.5-10.1) mg/dL Total Bilirubin 1.0 (0.2-1.0) mg/dL AST 11 L (15-37) IU/L ALT 25 (14-63) IU/L Alkaline Phosphatase 46 (46-116) U/L Total Protein 8.2 (6.4-8.2) g/dL Albumin 3.9 (3.4-5.0) g/dL Globulin 4.3 H (2.6-4.0) g/dL Albumin/Globulin Ratio 0.9 (0.9-1.6) Urine Color Urine Appearance Urine pH (5.0-8.0) Ur Specific [place] (1.001-1.035) Urine Protein (NEGATIVE) mg/dL Urine Glucose (UA) (NEGATIVE) mg/dL Urine Ketones (NEGATIVE) mg/dL Urine Occult Blood (NEGATIVE) Urine Nitrite (NEGATIVE) Urine Bilirubin (NEGATIVE) Urine Urobilinogen (<2.0) EU/dL Ur Leukocyte Esterase (NEGATIVE) 08/20/18 08/21/18 08/21/18 Range/Units 11:40 05:44 05:44 WBC 20.22 H (4.0-11.0) K/uL RBC 5.30 (4.50-5.90) M/uL Hgb 15.5 (13.0-17.0) g/dL Hct 46.9 (38.0-50.0) % MCV 88.5 (80.0-98.0) fL MCH 29.2 (27.0-32.0) pg MCHC 33.0 (31.0-37.0) g/dL RDW Std Deviation 42.4 (28.0-62.0) fl RDW Coeff of [place] 13 (11.0-15.0) % Plt Count 190 (150-400) K/uL MPV 10.40 (7.40-12.00) fL Neut % (Auto) (48.0-80.0) % Lymph % (Auto) (16.0-40.0) % [place] % (Auto) (0.0-15.0) % Eos % (Auto) (0.0-7.0) % Baso % (Auto) (0.0-1.5) % Neut # (Auto) (1.4-5.7) K/uL Lymph # (Auto) (0.6-2.4) K/uL [place] # (Auto) (0.0-0.8) K/uL Eos # (Auto) (0.0-0.7) K/uL Baso # (Auto) (0.0-0.1) K/uL Add Manual Diff YES Neutrophils % (Manual) 70 (48.0-80.0) % Band Neutrophils % 10 % Lymphocytes % (Manual) 15 L (16.0-40.0) % Monocytes % (Manual) 2 (0.0-15.0) % Eosinophils % (Manual) 1 (0.0-7.0) % Metamyelocytes % 2 % Nucleated RBC % 0.0 /100WBC Absolute Seg Neuts 14.2 H (1.4-5.7) Band Neutrophils # 2.0 Lymphocytes # (Manual) 3.0 H (0.6-2.4) Monocytes # (Manual) 0.4 (0.0-0.8) Eosinophils # (Manual) 0.2 (0.0-0.7) Absolute Metamyelocyte 0.4 Nucleated RBCs # 0 K/uL Lactate (0.20-2.00) mmol/L Sodium 138 (136-148) mmol/L Potassium 4.0 (3.5-5.1) mmol/L Chloride 101 (98-107) mmol/L Carbon Dioxide 28.7 (21.0-32.0) mmol/L BUN 6 L (7.0-18.0) mg/dL Creatinine 1.0 (0.8-1.3) mg/dL Est Cr Clr Drug Dosing 113.91 mL/min Estimated GFR (MDRD) > 60.0 ml/min Glucose 104 (74-106) mg/dL Calcium 8.6 (8.5-10.1) mg/dL Total Bilirubin 0.9 (0.2-1.0) mg/dL AST 14 L (15-37) IU/L ALT 27 (14-63) IU/L Alkaline Phosphatase 47 (46-116) U/L Total Protein 7.6 (6.4-8.2) g/dL Albumin 3.4 (3.4-5.0) g/dL Globulin 4.2 H (2.6-4.0) g/dL Albumin/Globulin Ratio 0.8 L (0.9-1.6) Urine Color YELLOW Urine Appearance CLEAR Urine pH 6.0 (5.0-8.0) Ur Specific [place] 1.020 (1.001-1.035) Urine Protein NEGATIVE (NEGATIVE) mg/dL Urine Glucose (UA) NEGATIVE (NEGATIVE) mg/dL Urine Ketones NEGATIVE (NEGATIVE) mg/dL Urine Occult Blood NEGATIVE (NEGATIVE) Urine Nitrite NEGATIVE (NEGATIVE) Urine Bilirubin NEGATIVE (NEGATIVE) Urine Urobilinogen 0.2 (<2.0) EU/dL Ur Leukocyte Esterase NEGATIVE (NEGATIVE) Med Orders - Current: Current Medications Acetaminophen (Tylenol) 650 mg PO Q4H PRN PRN Reason: Pain (Mild 1-3)/fever Last Admin: 08/21/18 07:32 Dose: 650 mg Docusate Sodium (Colace) 100 mg PO BID PRN PRN Reason: Constipation Enoxaparin Sodium (Lovenox) 30 mg SUBCUT Q24H [facility] Last Admin: 08/20/18 15:41 Dose: 30 mg Sodium Chloride (Normal Saline) 1,000 mls @ 100 mls/hr IV ASDIRECTED [facility] Last Admin: 08/21/18 04:23 Dose: 100 mls/hr Linezolid 600 mg/ Premix 300 mls @ 300 mls/hr IV Q12H [facility] Last Admin: 08/21/18 02:27 Dose: 300 mls/hr Ondansetron HCl (Zofran Odt) 4 mg PO Q6H PRN PRN Reason: nausea, able to take PO Oxycodone HCl (Oxycodone) 5 mg PO Q4H PRN PRN Reason: Pain (moderate 4-6) Last Admin: 08/21/18 07:34 Dose: 5 mg Discontinued Medications Ceftriaxone Sodium (Rocephin) 1 gm IM ONETIME ONE Stop: 08/20/18 13:02 Last Admin: 08/20/18 14:07 Dose: Not Given Diphenhydramine HCl (Benadryl) 25 mg IVPUSH ONETIME ONE Stop: 08/20/18 13:26 Last Admin: 08/20/18 13:31 Dose: 25 mg Sodium Chloride (Normal Saline) 1,000 mls @ 999 mls/hr IV STAT ONE Stop: 08/20/18 14:04 Last Admin: 08/20/18 13:22 Dose: 999 mls/hr Vancomycin HCl 1 gm/ Sodium (Chloride) 250 mls @ 250 mls/hr IV ONETIME ONE Stop: 08/20/18 14:03 Last Admin: 08/20/18 13:22 Dose: 250 mls/hr Sodium Chloride (Normal Saline) Confirm Administered Dose 250 mls @ as directed .ROUTE .STK-MED ONE Stop: 08/20/18 13:14 Last Admin: 08/20/18 13:15 Dose: Not Given Ceftriaxone Sodium/Dextrose 1 (gm/ Premix) 50 mls @ 100 mls/hr IV ONETIME ONE Stop: 08/20/18 13:54 Last Admin: 08/20/18 13:35 Dose: 100 mls/hr Iopamidol (Isovue Multipack-370 (76%)) 100 ml IVPUSH ONETIME STA Stop: 08/20/18 12:28 Last Admin: 08/20/18 12:28 Dose: 100 ml Vancomycin HCl (Vancomycin) Confirm Administered Dose 1 gm .ROUTE .STK-MED ONE Stop: 08/20/18 13:13 Last Admin: 08/20/18 13:15 Dose: Not Given - Problem List & Annotations (1) Cellulitis of gluteal region SNOMED Code(s): 00518826 Code(s): L03.317 - CELLULITIS OF BUTTOCK Status: Acute Priority: High Current Visit: Yes - My Orders Last 24 Hours: My Active Orders 08/20/18 14:08 Up ad Ramila [RC] ASDIRECTED Vital Signs [RC] Q4H Resuscitation Status Routine 08/20/18 14:09 Oxygen Therapy [RC] PRN VTE/DVT Education [RC] PER UNIT ROUTINE Acetaminophen [Tylenol] 650 mg PO Q4H PRN Docusate Sodium [Colace] 100 mg PO BID PRN Ondansetron [Zofran ODT] 4 mg PO Q6H PRN oxyCODONE 5 mg PO Q4H PRN 08/20/18 14:15 Enoxaparin [Lovenox] 30 mg SUBCUT Q24H Sodium Chloride 0.9% [Normal Saline] 1,000 ml IV ASDIRECTED 08/20/18 15:15 Linezolid [Zyvox] 600 mg Premix Bag 1 bag IV Q12H 08/20/18 Dinner Regular Diet [DIET]
[2018-08-21] MEDS: Enoxaparin 30 MG/0.3 ML Syringe SUBCUT SCH (15:06)
[2018-08-22] MEDS: Linezolid 600 MG in Premix Bag 1 BAG IV SCH ×2 (02:19→15:54)
[2018-08-22] MEDS: Sodium Chloride 0.9% 1,000 ML IV SCH ×2 (03:37→13:24)
[2018-08-22 05:37] LABS: CHLORIDE,CL 103 mmol/L (98-107); SODIUM,NA 137 mmol/L (136-148)
[2018-08-22] MEDS: oxyCODONE 5 MG Tab PO PRN ×4 (05:58→21:06)
[2018-08-22] MEDS: Acetaminophen 325 MG Tab PO PRN (08:02)
--- NOTE | 2018-08-22 09:55 | PCM.PN ---
- General Info Date of Service: 08/22/18 Subjective Update: no acute events overnight. Afebrile. States that there's drainage from abscess. - Patient Data Vitals - Most Recent: Last Vital Signs Temp 37.4 C 08/22/18 08:02 Pulse 98 08/22/18 07:00 Resp 18 08/22/18 07:00 BP 112/53 L 08/22/18 07:00 Pulse Ox 98 08/22/18 07:00 Weight - Most Recent: 113.398 kg I&O - Last 24 Hours: Intake & Output 08/21/18 08/22/18 08/22/18 22:59 06:59 14:59 Intake Total 2159 3123 Output Total 1540 1030 Balance 619 2093 Lab Results Last 24 Hours: Laboratory Results - last 24 hr 08/22/18 08/22/18 Range/Units 04:45 04:45 WBC 15.93 H (4.0-11.0) K/uL RBC 4.81 (4.50-5.90) M/uL Hgb 13.5 (13.0-17.0) g/dL Hct 42.9 (38.0-50.0) % MCV 89.2 (80.0-98.0) fL MCH 28.1 (27.0-32.0) pg MCHC 31.5 (31.0-37.0) g/dL RDW Std Deviation 42.4 (28.0-62.0) fl RDW Coeff of [place] 13 (11.0-15.0) % Plt Count 180 (150-400) K/uL MPV 10.60 (7.40-12.00) fL Nucleated RBC % 0.0 /100WBC Nucleated RBCs # 0 K/uL Sodium 137 (136-148) mmol/L Potassium 3.9 (3.5-5.1) mmol/L Chloride 103 (98-107) mmol/L Carbon Dioxide 28.6 (21.0-32.0) mmol/L BUN 7 (7.0-18.0) mg/dL Creatinine 0.9 (0.8-1.3) mg/dL Est Cr Clr Drug Dosing 126.56 mL/min Estimated GFR (MDRD) > 60.0 ml/min Glucose 109 H (74-106) mg/dL Calcium 8.5 (8.5-10.1) mg/dL Tyrell Results Last 24 Hours: Microbiology 08/20/18 00:50 Aerobic Blood Culture - Preliminary Blood - Venous - Lab Draw NO GROWTH AFTER 1 DAY Anaerobic Blood Culture - Preliminary NO GROWTH AFTER 1 DAY Med Orders - Current: Current Medications Acetaminophen (Tylenol) 650 mg PO Q4H PRN PRN Reason: Pain (Mild 1-3)/fever Last Admin: 08/22/18 08:02 Dose: 650 mg Docusate Sodium (Colace) 100 mg PO BID PRN PRN Reason: Constipation Enoxaparin Sodium (Lovenox) 30 mg SUBCUT Q24H [facility] Last Admin: 08/21/18 15:06 Dose: 30 mg Sodium Chloride (Normal Saline) 1,000 mls @ 100 mls/hr IV ASDIRECTED [facility] Last Admin: 08/22/18 03:37 Dose: 100 mls/hr Linezolid 600 mg/ Premix 300 mls @ 300 mls/hr IV Q12H [facility] Last Admin: 08/22/18 02:19 Dose: 300 mls/hr Ondansetron HCl (Zofran Odt) 4 mg PO Q6H PRN PRN Reason: nausea, able to take PO Oxycodone HCl (Oxycodone) 5 mg PO Q4H PRN PRN Reason: Pain (moderate 4-6) Last Admin: 08/22/18 05:58 Dose: 5 mg Discontinued Medications Ceftriaxone Sodium (Rocephin) 1 gm IM ONETIME ONE Stop: 08/20/18 13:02 Last Admin: 08/20/18 14:07 Dose: Not Given Diphenhydramine HCl (Benadryl) 25 mg IVPUSH ONETIME ONE Stop: 08/20/18 13:26 Last Admin: 08/20/18 13:31 Dose: 25 mg Sodium Chloride (Normal Saline) 1,000 mls @ 999 mls/hr IV STAT ONE Stop: 08/20/18 14:04 Last Admin: 08/20/18 13:22 Dose: 999 mls/hr Vancomycin HCl 1 gm/ Sodium (Chloride) 250 mls @ 250 mls/hr IV ONETIME ONE Stop: 08/20/18 14:03 Last Admin: 08/20/18 13:22 Dose: 250 mls/hr Sodium Chloride (Normal Saline) Confirm Administered Dose 250 mls @ as directed .ROUTE .STK-MED ONE Stop: 08/20/18 13:14 Last Admin: 08/20/18 13:15 Dose: Not Given Ceftriaxone Sodium/Dextrose 1 (gm/ Premix) 50 mls @ 100 mls/hr IV ONETIME ONE Stop: 08/20/18 13:54 Last Admin: 08/20/18 13:35 Dose: 100 mls/hr Iopamidol (Isovue Multipack-370 (76%)) 100 ml IVPUSH ONETIME STA Stop: 08/20/18 12:28 Last Admin: 08/20/18 12:28 Dose: 100 ml Vancomycin HCl (Vancomycin) Confirm Administered Dose 1 gm .ROUTE .STK-MED ONE Stop: 08/20/18 13:13 Last Admin: 08/20/18 13:15 Dose: Not Given - Exam General: Alert, Oriented, Cooperative, No Acute Distress Lungs: Clear to Auscultation, Normal Respiratory Effort. No: Crackles, Wheezing Cardiovascular: Regular Rate, Regular Rhythm (Male) Exam: Other (erythematous, tender right gluteal abscess with active drainage.) - Problem List Review Problem List Initiated/Reviewed/Updated: Yes - My Orders Last 24 Hours: My Active Orders 08/22/18 09:27 Notify Provider Consults [RC] ASDIRECTED Consult to Physician [CONS] Routine - Plan Plan:: A: 1. Right gluteal fold abscess 2. Leukocytosis, improving P: 1. Right gluteal fold abscess- active drainage today. will consult general surgery for possible I&D. Continue linezolid for now. Dispo: likely DC tomorrow
[2018-08-22] MEDS: Enoxaparin 30 MG/0.3 ML Syringe SUBCUT SCH (13:20)
--- NOTE | 2018-08-22 14:07 | PCM.CONS ---
H&P History of Present Illness - General Date of Service: 08/22/18 Admit Problem/Dx: I have seen and examined to patient independently of durable medical equipment technician, Juan Mckeon MD. I have discussed the case for care of this patient with him. I have reviewed and approve of the plan of care as outlined by durable medical equipment technician. Please see orders. Source of Information: Patient History Limitations: Reports: No Limitations - History of Present Illness Initial Comments - Free Text/Narative: 23-year-old gentleman admitted earlier this week with spontaneous drainage and discomfort on the right perineum. He is currently incarcerated, secondary to being arrested for drug use. He has been in [facility] for the last 3 months and therefore has not had any alcohol, tobacco or illicit drugs. No prior history of abscesses. Denies fever or chills. Once the abscess spontaneously drained he has been feeling much better. Symptom Onset Date: 08/19/18 Duration of Symptoms: Reports: Improving Location: Reports: Other (Right buttock) Quality: Reports: Pressure, Throbbing Improves with: Reports: Rest Worsens with: Reports: Movement Associated Symptoms: Reports: Other (fever but no chills) right buttocks Pain Score (Numeric/FACES): 6 - Related Data Allergies/Adverse Reactions: Allergies Allergy/AdvReac Type Severity Reaction Status Date / Time vancomycin Allergy Hives Verified 08/21/18 14:57 Home Medications: Home Meds . [No Known Home Meds] 08/20/18 [History] Past Medical History - Past Health History Medical/Surgical History: Denies Medical/Surgical History HEENT History: Reports: None Cardiovascular History: Reports: None Respiratory History: Reports: None Gastrointestinal History: Reports: None Genitourinary History: Reports: None Musculoskeletal History: Reports: None Neurological History: Reports: None Psychiatric History: Reports: None Endocrine/Metabolic History: Reports: None Hematologic History: Reports: None Immunologic History: Reports: None Oncologic (Cancer) History: Reports: None Dermatologic History: Reports: None - Infectious Disease History Infectious Disease History: Reports: MRSA Social & Family History - Family History Family Medical History: Noncontributory - Tobacco Use Smoking Status *Q: Never Smoker Second Hand Smoke Exposure: No - Caffeine Use Caffeine Use: Reports: Coffee - Alcohol Use Days Per Week of Alcohol Use: 3 Number of Drinks Per Day: 2 Total Drinks Per Week: 6 Date of Last Drink: 04/28/18 - Recreational Drug Use Recreational Drug Use: Yes Drug Use in Last 12 Months: Yes Recreational Drug Type: Reports: Marijuana/Hashish, Methamphetamine Recreational Drug Use Frequency: Not Used In Over 4 Months - Living Situation & Occupation Living situation: Reports: Other (Legal custody) H&P Review of Systems - Review of Systems: Review Of Systems: See Below General: Reports: Fever. Denies: Chills, Malaise, Weakness, Fatigue, Night Sweats, Diaphoresis HEENT: Reports: No Symptoms Pulmonary: Denies: Shortness of Breath Cardiovascular: Denies: Chest Pain Gastrointestinal: Reports: Decreased Appetite, Flatus. Denies: Abdominal Pain, Anorexia, Bloody Stool, Constipation, Diarrhea, Distension, Hematemesis, Hematochezia, Melena, Nausea, Vomiting Genitourinary: Denies: Dysuria, Frequency, Burning Musculoskeletal: Reports: No Symptoms Skin: Reports: No Symptoms Psychiatric: Reports: No Symptoms Neurological: Reports: No Symptoms Hematologic/Lymphatic: Reports: No Symptoms Immunologic: Reports: No Symptoms Exam - Exam Exam: See Below - Vital Signs Vital Signs: Last Vital Signs Temp 99.3 F 08/22/18 08:02 Pulse 98 08/22/18 07:00 Resp 18 08/22/18 07:00 BP 112/53 L 08/22/18 07:00 Pulse Ox 98 08/22/18 07:00 Weight: 250 lb - Exam General: Alert, Oriented, Cooperative, Mild Distress HEENT: Conjunctiva Clear, EACs Clear, Pupils Equal, Pupils Reactive. No: Scleral Icterus Neck: Supple, Trachea Midline Lungs: Clear to Auscultation, Normal Respiratory Effort Cardiovascular: Regular Rate, Regular Rhythm GI/Abdominal Exam: Normal Bowel Sounds, Soft, Non-Tender (Male) Exam: No Hernia, Deferred Rectal (Males) Exam: Tenderness, Other (perineal induration with cellulitis) Back Exam: Normal Inspection Extremities: Normal Inspection, Normal Range of Motion Peripheral Pulses: 4+: Posterior Tibial (L), Posterior Tibial (R), Dorsalis Pedis (L), Dorsalis Pedis (R) Skin: Warm, Dry, Intact Neurological: Cranial Nerves Intact, Reflexes Equal Bilateral Psychiatric: Alert, Normal Affect, Normal Mood - Patient Data Lab Results Last 24 hrs: Laboratory Results - last 24 hr 08/22/18 08/22/18 Range/Units 04:45 04:45 WBC 15.93 H (4.0-11.0) K/uL RBC 4.81 (4.50-5.90) M/uL Hgb 13.5 (13.0-17.0) g/dL Hct 42.9 (38.0-50.0) % MCV 89.2 (80.0-98.0) fL MCH 28.1 (27.0-32.0) pg MCHC 31.5 (31.0-37.0) g/dL RDW Std Deviation 42.4 (28.0-62.0) fl RDW Coeff of Warren 13 (11.0-15.0) % Plt Count 180 (150-400) K/uL MPV 10.60 (7.40-12.00) fL Nucleated RBC % 0.0 /100WBC Nucleated RBCs # 0 K/uL Sodium 137 (136-148) mmol/L Potassium 3.9 (3.5-5.1) mmol/L Chloride 103 (98-107) mmol/L Carbon Dioxide 28.6 (21.0-32.0) mmol/L BUN 7 (7.0-18.0) mg/dL Creatinine 0.9 (0.8-1.3) mg/dL Est Cr Clr Drug Dosing 126.56 mL/min Estimated GFR (MDRD) > 60.0 ml/min Glucose 109 H (74-106) mg/dL Calcium 8.5 (8.5-10.1) mg/dL Result Diagrams: 08/22/18 04:45 08/22/18 04:45 Tyrell Results Last 24 hrs: Microbiology 08/20/18 00:50 Aerobic Blood Culture - Preliminary Blood - Venous - Lab Draw NO GROWTH AFTER 2 DAYS Anaerobic Blood Culture - Preliminary NO GROWTH AFTER 2 DAYS Consult PN Assessment/Plan (1) Perianal cellulitis SNOMED Code(s): 839133730 Code(s): K61.0 - ANAL ABSCESS Priority: Medium Current Visit: Yes (2) Infection of perianal area SNOMED Code(s): 772825682, 354137463 Code(s): K62.89 - OTHER SPECIFIED DISEASES OF ANUS AND RECTUM Priority: Medium Current Visit: Yes (3) Cellulitis of gluteal region SNOMED Code(s): 70001908 Code(s): L03.317 - CELLULITIS OF BUTTOCK Priority: High Current Visit: Yes Problem List Initiated/Reviewed/Updated: Yes My Orders Last 24 Hours: My Active Orders 08/22/18 13:17 Sitz Bath [OM.PC] Routine 08/22/18 Dinner Nothing Per Oral Diet [DIET] Plan: Sitz bath BID and PRN. NPO after midnight. Re-evaluate in the morning with the possibility of incision and drainage.
[2018-08-23] MEDS: Sodium Chloride 0.9% 1,000 ML IV SCH ×2 (02:02→12:29)
[2018-08-23] MEDS: Linezolid 600 MG in Premix Bag 1 BAG IV SCH ×2 (03:46→15:32)
[2018-08-23] MEDS: oxyCODONE 5 MG Tab PO PRN ×4 (04:28→22:13)
[2018-08-23 05:57] LABS: CHLORIDE,CL 105 mmol/L (98-107); SODIUM,NA 139 mmol/L (136-148)
--- NOTE | 2018-08-23 09:21 | PCM.PN ---
- General Info Date of Service: 08/23/18 Subjective Update: No acute events overnight. Afebrile. Less drainage from perineal abscess. - Patient Data Vitals - Most Recent: Last Vital Signs Temp 36.6 C 08/23/18 08:00 Pulse 63 08/23/18 08:00 Resp 17 08/23/18 08:00 BP 107/55 L 08/23/18 08:00 Pulse Ox 96 08/23/18 08:00 Weight - Most Recent: 113.398 kg I&O - Last 24 Hours: Intake & Output 08/22/18 08/23/18 08/23/18 22:59 06:59 14:59 Intake Total 2836 2750 Output Total 620 1920 Balance 2216 830 Lab Results Last 24 Hours: Laboratory Results - last 24 hr 08/23/18 08/23/18 Range/Units 05:25 05:25 WBC 10.36 (4.0-11.0) K/uL RBC 4.82 (4.50-5.90) M/uL Hgb 13.8 (13.0-17.0) g/dL Hct 43.2 (38.0-50.0) % MCV 89.6 (80.0-98.0) fL MCH 28.6 (27.0-32.0) pg MCHC 31.9 (31.0-37.0) g/dL RDW Std Deviation 42.3 (28.0-62.0) fl RDW Coeff of Warren 13 (11.0-15.0) % Plt Count 197 (150-400) K/uL MPV 10.70 (7.40-12.00) fL Nucleated RBC % 0.0 /100WBC Nucleated RBCs # 0 K/uL Sodium 139 (136-148) mmol/L Potassium 4.1 (3.5-5.1) mmol/L Chloride 105 (98-107) mmol/L Carbon Dioxide 26.5 (21.0-32.0) mmol/L BUN 7 (7.0-18.0) mg/dL Creatinine 0.8 (0.8-1.3) mg/dL Est Cr Clr Drug Dosing 142.38 mL/min Estimated GFR (MDRD) > 60.0 ml/min Glucose 106 (74-106) mg/dL Calcium 8.3 L (8.5-10.1) mg/dL Tyrell Results Last 24 Hours: Microbiology 08/20/18 00:50 Aerobic Blood Culture - Preliminary Blood - Venous - Lab Draw NO GROWTH AFTER 2 DAYS Anaerobic Blood Culture - Preliminary NO GROWTH AFTER 2 DAYS Med Orders - Current: Current Medications Acetaminophen (Tylenol) 650 mg PO Q4H PRN PRN Reason: Pain (Mild 1-3)/fever Last Admin: 08/22/18 08:02 Dose: 650 mg Docusate Sodium (Colace) 100 mg PO BID PRN PRN Reason: Constipation Enoxaparin Sodium (Lovenox) 30 mg SUBCUT Q24H [facility] Last Admin: 08/22/18 13:20 Dose: 30 mg Sodium Chloride (Normal Saline) 1,000 mls @ 100 mls/hr IV ASDIRECTED [facility] Last Admin: 08/23/18 02:02 Dose: 100 mls/hr Linezolid 600 mg/ Premix 300 mls @ 300 mls/hr IV Q12H [facility] Last Admin: 08/23/18 03:46 Dose: 300 mls/hr Ondansetron HCl (Zofran Odt) 4 mg PO Q6H PRN PRN Reason: nausea, able to take PO Oxycodone HCl (Oxycodone) 5 mg PO Q4H PRN PRN Reason: Pain (moderate 4-6) Last Admin: 08/23/18 08:39 Dose: 5 mg Discontinued Medications Ceftriaxone Sodium (Rocephin) 1 gm IM ONETIME ONE Stop: 08/20/18 13:02 Last Admin: 08/20/18 14:07 Dose: Not Given Diphenhydramine HCl (Benadryl) 25 mg IVPUSH ONETIME ONE Stop: 08/20/18 13:26 Last Admin: 08/20/18 13:31 Dose: 25 mg Sodium Chloride (Normal Saline) 1,000 mls @ 999 mls/hr IV STAT ONE Stop: 08/20/18 14:04 Last Admin: 08/20/18 13:22 Dose: 999 mls/hr Vancomycin HCl 1 gm/ Sodium (Chloride) 250 mls @ 250 mls/hr IV ONETIME ONE Stop: 08/20/18 14:03 Last Admin: 08/20/18 13:22 Dose: 250 mls/hr Sodium Chloride (Normal Saline) Confirm Administered Dose 250 mls @ as directed .ROUTE .STK-MED ONE Stop: 08/20/18 13:14 Last Admin: 08/20/18 13:15 Dose: Not Given Ceftriaxone Sodium/Dextrose 1 (gm/ Premix) 50 mls @ 100 mls/hr IV ONETIME ONE Stop: 08/20/18 13:54 Last Admin: 08/20/18 13:35 Dose: 100 mls/hr Iopamidol (Isovue Multipack-370 (76%)) 100 ml IVPUSH ONETIME STA Stop: 08/20/18 12:28 Last Admin: 08/20/18 12:28 Dose: 100 ml Vancomycin HCl (Vancomycin) Confirm Administered Dose 1 gm .ROUTE .STK-MED ONE Stop: 08/20/18 13:13 Last Admin: 08/20/18 13:15 Dose: Not Given - Exam General: Alert, Oriented, Cooperative Lungs: Clear to Auscultation, Normal Respiratory Effort. No: Crackles, Wheezing Cardiovascular: Regular Rate, Regular Rhythm GI/Abdominal Exam: Normal Bowel Sounds, Soft, Non-Tender (Male) Exam: Other (Tender perineal abscess, less drainage) Extremities: No Pedal Edema Skin: Warm, Dry - Problem List Review Problem List Initiated/Reviewed/Updated: Yes - My Orders Last 24 Hours: My Active Orders 08/22/18 09:27 Notify Provider Consults [RC] ASDIRECTED Consult to Physician [CONS] Routine 08/23/18 Lunch Regular Diet [DIET] - Plan Plan:: A: 1. Perineal abscess 2. Leukocytosis, resolved P: 1. Perineal abscess-improving. Will continue with IV antibiotics today. Appreciate general surgery recs. Dispo: likely DC tomorrow
[2018-08-23] MEDS: Acetaminophen 325 MG Tab PO PRN (12:29)
[2018-08-23] MEDS: Enoxaparin 30 MG/0.3 ML Syringe SUBCUT SCH (14:20)
--- NOTE | 2018-08-23 14:37 | PCM.SN ---
- Free Text/Narrative Note: Patient seen on rounds this morning. Seemed to be doing much better. No drainage. No fever/chills. WBC responding to antibiotics. Would continue sitz baths. Okay to feed him. Would keep him on IV antibiotics today, then discharge on po antibiotics to complete 10 days. Should continue sitz baths at half-way. I can see him back in the office if he continues to have trouble.
[2018-08-24] MEDS: Sodium Chloride 0.9% 1,000 ML IV SCH (00:21)
[2018-08-24] MEDS: Linezolid 600 MG in Premix Bag 1 BAG IV SCH (03:08)
[2018-08-24] MEDS: oxyCODONE 5 MG Tab PO PRN ×2 (04:14→08:22)
--- NOTE | 2018-08-24 13:32 | PCM.CONSN ---
- General Info Date of Service: 08/24/18 Admission Dx/Problem (Free Text): Perineal abscess. Subjective Update: Patient seen on rounds this morning. Is feeling much better. Denies fever/ chills. No further drainage. Functional Status: Reports: Pain Controlled, Tolerating Diet, Ambulating, Urinating - Review of Systems General: Denies: Fever, Chills HEENT: Reports: No Symptoms Pulmonary: Denies: Shortness of Breath Cardiovascular: Denies: Chest Pain Gastrointestinal: Denies: Abdominal Pain, Constipation, Decreased Appetite, Diarrhea, Difficulty Swallowing, Nausea, Vomiting Genitourinary: Reports: No Symptoms Musculoskeletal: Reports: No Symptoms Skin: Reports: No Symptoms Neurological: Reports: No Symptoms Psychiatric: Reports: No Symptoms - Patient Data Vitals - Most Recent: Last Vital Signs Temp 98.0 F 08/24/18 11:00 Pulse 68 08/24/18 11:00 Resp 16 08/24/18 11:00 BP 126/58 L 08/24/18 11:00 Pulse Ox 94 L 08/24/18 11:00 Weight - Most Recent: 250 lb I&O - Last 24 Hours: Intake & Output 08/24/18 08/24/18 08/24/18 03:59 11:59 19:59 Intake Total 1500 2837 800 Output Total 1760 700 Balance -260 2837 100 Lab Results Last 24 Hours: Laboratory Results - last 24 hr 08/24/18 Range/Units 05:25 WBC 8.57 (4.0-11.0) K/uL RBC 4.89 (4.50-5.90) M/uL Hgb 13.8 (13.0-17.0) g/dL Hct 43.7 (38.0-50.0) % MCV 89.4 (80.0-98.0) fL MCH 28.2 (27.0-32.0) pg MCHC 31.6 (31.0-37.0) g/dL RDW Std Deviation 41.6 (28.0-62.0) fl RDW Coeff of Warren 13 (11.0-15.0) % Plt Count 252 (150-400) K/uL MPV 10.30 (7.40-12.00) fL Nucleated RBC % 0.0 /100WBC Nucleated RBCs # 0 K/uL [place]rell Results Last 24 Hours: Microbiology 08/20/18 00:50 Aerobic Blood Culture - Preliminary Blood - Venous - Lab Draw NO GROWTH AFTER 4 DAYS Anaerobic Blood Culture - Preliminary NO GROWTH AFTER 4 DAYS Med Orders - Current: Current Medications Discontinued Medications Acetaminophen (Tylenol) 650 mg PO Q4H PRN PRN Reason: Pain (Mild 1-3)/fever Last Admin: 08/23/18 12:29 Dose: 650 mg Ceftriaxone Sodium (Rocephin) 1 gm IM ONETIME ONE Stop: 08/20/18 13:02 Last Admin: 08/20/18 14:07 Dose: Not Given Diphenhydramine HCl (Benadryl) 25 mg IVPUSH ONETIME ONE Stop: 08/20/18 13:26 Last Admin: 08/20/18 13:31 Dose: 25 mg Docusate Sodium (Colace) 100 mg PO BID PRN PRN Reason: Constipation Enoxaparin Sodium (Lovenox) 30 mg SUBCUT Q24H [facility] Last Admin: 08/23/18 14:20 Dose: 30 mg Sodium Chloride (Normal Saline) 1,000 mls @ 999 mls/hr IV STAT ONE Stop: 08/20/18 14:04 Last Admin: 08/20/18 13:22 Dose: 999 mls/hr Vancomycin HCl 1 gm/ Sodium (Chloride) 250 mls @ 250 mls/hr IV ONETIME ONE Stop: 08/20/18 14:03 Last Admin: 08/20/18 13:22 Dose: 250 mls/hr Sodium Chloride (Normal Saline) Confirm Administered Dose 250 mls @ as directed .ROUTE .STK-MED ONE Stop: 08/20/18 13:14 Last Admin: 08/20/18 13:15 Dose: Not Given Ceftriaxone Sodium/Dextrose 1 (gm/ Premix) 50 mls @ 100 mls/hr IV ONETIME ONE Stop: 08/20/18 13:54 Last Admin: 08/20/18 13:35 Dose: 100 mls/hr Sodium Chloride (Normal Saline) 1,000 mls @ 100 mls/hr IV ASDIRECTED [facility] Last Admin: 08/24/18 00:21 Dose: 100 mls/hr Linezolid 600 mg/ Premix 300 mls @ 300 mls/hr IV Q12H [facility] Last Admin: 08/24/18 03:08 Dose: 300 mls/hr Iopamidol (Isovue Multipack-370 (76%)) 100 ml IVPUSH ONETIME STA Stop: 08/20/18 12:28 Last Admin: 08/20/18 12:28 Dose: 100 ml Ondansetron HCl (Zofran Odt) 4 mg PO Q6H PRN PRN Reason: nausea, able to take PO Oxycodone HCl (Oxycodone) 5 mg PO Q4H PRN PRN Reason: Pain (moderate 4-6) Last Admin: 08/24/18 08:22 Dose: 5 mg Vancomycin HCl (Vancomycin) Confirm Administered Dose 1 gm .ROUTE .STK-MED ONE Stop: 08/20/18 13:13 Last Admin: 08/20/18 13:15 Dose: Not Given - Exam General: Alert, Oriented, Cooperative, No Acute Distress HEENT: Pupils Equal, Pupils Reactive Neck: Supple, Trachea Midline Lungs: Clear to Auscultation, Normal Respiratory Effort Cardiovascular: Regular Rate, Regular Rhythm. No: Tachycardia GI/Abdominal Exam: Normal Bowel Sounds, Other (Perineal area much less tender. No induration. Minimal erythema. No spontaneous or expressible drainage.) (Male) Exam: No Hernia Back Exam: Normal Inspection Extremities: Normal Inspection, Normal Range of Motion Skin: Warm, Dry, Intact Wound/Incisions: No Drainage Neurological: No New Focal Deficit Psy/Mental Status: Alert, Normal Affect, Normal Mood Consult PN Assessment/Plan (1) Perianal cellulitis SNOMED Code(s): 993101650 Code(s): K61.0 - ANAL ABSCESS Priority: Medium (2) Infection of perianal area SNOMED Code(s): 159958231, 325251311 Code(s): K62.89 - OTHER SPECIFIED DISEASES OF ANUS AND RECTUM Priority: Medium (3) Cellulitis of gluteal region SNOMED Code(s): 82145704 Code(s): L03.317 - CELLULITIS OF BUTTOCK Priority: High Problem List Initiated/Reviewed/Updated: Yes Plan: Patient should continue po antibiotics. Sitz bath/shower daily as able. Return to see me as needed.
--- NOTE | 2018-08-24 18:55 | PCM.DCSUM1 ---
Discharge Summary - Hospital Course Free Text/Narrative:: 23 y/o male admitted for right perineal abscess and pain control. On admission he had leukocytosis and complaining of worsening perineal pain. Linezolid was started since patient presumably was given a dose in the ER and he had an adverse reaction to it. During this hospitalization, the patient's WBC normalized. In addition, general surgery was consulted for possible I&D. Dr. Johnson recommended medical management since white count was improving, afebrile. Abscess had started to drain on its own. The patient was discharged back to [facility] on Bactrim DS BID for 7 days. He was instructed to follow-up with PCP to re-evaluate the abscess. If not improving, he will need to follow-up with general surgery as outpatient. - Discharge Data Discharge Date: 08/24/18 Discharge Disposition: Home, Self-Care 01 Condition: Good - Patient Summary/Data Consults: Consultations 08/22/18 09:27 Consult to Physician [CONS] Routine - Patient Instructions Diet: Regular Diet as Tolerated Activity: As Tolerated Activity, Other: Sitz baths Driving: Do Not Drive Showering/Bathing: May Shower Notify Provider of: Fever, Increased Pain, Swelling and Redness, Drainage - Discharge Plan *PRESCRIPTION DRUG MONITORING PROGRAM REVIEWED*: Not Applicable *COPY OF PRESCRIPTION DRUG MONITORING REPORT IN PATIENT NAM: Not Applicable Prescriptions/Med Rec: Sulfamethoxazole/Trimethoprim [Bactrim Ds Tablet] 1 each PO BID 7 Days #14 tablet Home Medications: Home Meds Sulfamethoxazole/Trimethoprim [Bactrim Ds Tablet] 1 each PO BID 7 Days #14 tablet 08/24/18 [Rx] Patient Handouts: Cellulitis, Adult, [id number], Sulfamethoxazole; Trimethoprim, [id number] tablets Referrals: Juan Parsons MD [Resident] - 08/30/18 3:45 pm - Discharge Summary/Plan Comment DC Time >30 min.: No - Patient Data Vitals - Most Recent: Last Vital Signs Temp 36.7 C 08/24/18 11:00 Pulse 68 08/24/18 11:00 Resp 16 08/24/18 11:00 BP 126/58 L 08/24/18 11:00 Pulse Ox 94 L 08/24/18 11:00 Weight - Most Recent: 113.398 kg I&O - Last 24 hours: Intake & Output 08/24/18 08/24/18 08/24/18 06:59 14:59 22:59 Intake Total 3377 1760 Output Total 1760 700 Balance 1617 1060 Lab Results - Last 24 hrs: Laboratory Results - last 24 hr 08/24/18 Range/Units 05:25 WBC 8.57 (4.0-11.0) K/uL RBC 4.89 (4.50-5.90) M/uL Hgb 13.8 (13.0-17.0) g/dL Hct 43.7 (38.0-50.0) % MCV 89.4 (80.0-98.0) fL MCH 28.2 (27.0-32.0) pg MCHC 31.6 (31.0-37.0) g/dL RDW Std Deviation 41.6 (28.0-62.0) fl RDW Coeff of [place] 13 (11.0-15.0) % Plt Count 252 (150-400) K/uL MPV 10.30 (7.40-12.00) fL Nucleated RBC % 0.0 /100WBC Nucleated RBCs # 0 K/uL [facility] Results - Last 24 hrs: Microbiology 08/20/18 00:50 Aerobic Blood Culture - Preliminary Blood - Venous - Lab Draw NO GROWTH AFTER 4 DAYS Anaerobic Blood Culture - Preliminary NO GROWTH AFTER 4 DAYS Med Orders - Current: Current Medications Discontinued Medications Acetaminophen (Tylenol) 650 mg PO Q4H PRN PRN Reason: Pain (Mild 1-3)/fever Last Admin: 08/23/18 12:29 Dose: 650 mg Ceftriaxone Sodium (Rocephin) 1 gm IM ONETIME ONE Stop: 08/20/18 13:02 Last Admin: 08/20/18 14:07 Dose: Not Given Diphenhydramine HCl (Benadryl) 25 mg IVPUSH ONETIME ONE Stop: 08/20/18 13:26 Last Admin: 08/20/18 13:31 Dose: 25 mg Docusate Sodium (Colace) 100 mg PO BID PRN PRN Reason: Constipation Enoxaparin Sodium (Lovenox) 30 mg SUBCUT Q24H [facility] Last Admin: 08/23/18 14:20 Dose: 30 mg Sodium Chloride (Normal Saline) 1,000 mls @ 999 mls/hr IV STAT ONE Stop: 08/20/18 14:04 Last Admin: 08/20/18 13:22 Dose: 999 mls/hr Vancomycin HCl 1 gm/ Sodium (Chloride) 250 mls @ 250 mls/hr IV ONETIME ONE Stop: 08/20/18 14:03 Last Admin: 08/20/18 13:22 Dose: 250 mls/hr Sodium Chloride (Normal Saline) Confirm Administered Dose 250 mls @ as directed .ROUTE .STK-MED ONE Stop: 08/20/18 13:14 Last Admin: 08/20/18 13:15 Dose: Not Given Ceftriaxone Sodium/Dextrose 1 (gm/ Premix) 50 mls @ 100 mls/hr IV ONETIME ONE Stop: 08/20/18 13:54 Last Admin: 08/20/18 13:35 Dose: 100 mls/hr Sodium Chloride (Normal Saline) 1,000 mls @ 100 mls/hr IV ASDIRECTED [facility] Last Admin: 08/24/18 00:21 Dose: 100 mls/hr Linezolid 600 mg/ Premix 300 mls @ 300 mls/hr IV Q12H [facility] Last Admin: 08/24/18 03:08 Dose: 300 mls/hr Iopamidol (Isovue Multipack-370 (76%)) 100 ml IVPUSH ONETIME STA Stop: 08/20/18 12:28 Last Admin: 08/20/18 12:28 Dose: 100 ml Ondansetron HCl (Zofran Odt) 4 mg PO Q6H PRN PRN Reason: nausea, able to take PO Oxycodone HCl (Oxycodone) 5 mg PO Q4H PRN PRN Reason: Pain (moderate 4-6) Last Admin: 08/24/18 08:22 Dose: 5 mg Vancomycin HCl (Vancomycin) Confirm Administered Dose 1 gm .ROUTE .STK-MED ONE Stop: 08/20/18 13:13 Last Admin: 08/20/18 13:15 Dose: Not Given
== END 2018-08-24 13:17 | disposition home or self-care (01) | DRG 603 ==
LOC: MW.ED 10:34 → MW.MS 14:12 → OBSVTOIN 08-23 10:54
PROVIDERS: ADMIT Internal Medicine; ATTEND Internal Medicine
DX: L02.215 Cutaneous abscess of perineum (principal); L03.317 Cellulitis of buttock; L03.315 Cellulitis of perineum; L73.9 Follicular disorder, unspecified; D72.829 Elevated white blood cell count, unspecified; Z88.1 Allergy status to other antibiotic agents
CPT/HCPCS: 36415; 72193; 72193-26; 80048; 80053; 81003; 83605; 85025; 85027; 87040; 96365; 96375; 99285-25; A4217; A9270-GY; J0696; J1200; J1650; J2020; J3370; J7040; J7050; Q9967